=== PATIENT | female | born 1955 | race Caucasian/White ===

== ENCOUNTER 2020-04-09 22:57 | Inpatient (IN) ==
--- NOTE | 2020-04-09 23:22 | DR.GENAD ---
HPI Time Seen Time Seen by Provider: 04/09/20 23:22 PCP Primary Care Physician: ZEHRA LEIVA Comment HPI Comment: HISTORY BELOW. Complaint/Symptoms Chief Complaint Doctors Comments: ABDOMINAL PAIN, CHEST PAIN AND GENERALIZED WEAKNESS THAT STARTED THIS WEEK. COVID 19 POSITIVE AND REPORTED TO PATIENT THIS WEEK. INCREASE FATIGUE. SHE STARTED WITH EAR PAIN AND SINUS DRAINAGE. NOW WITH NAUSEA AND VOMITING. NOT HOLDING DOWN FOOD. HAVING DIFFUSED ABDOMINAL PAIN. SHE IS COUGHING, AND SPITTING. DENIES FEVER. ON ZITHROMAX AND HYDROXY CHLOROQUIN. ALSO ON MEDROL DOSE PK. GETTING WORSE. HAVING DIARRHEA WELL. PATIENT BELIEVE HER MEDICATIONS ARE CONTRIBUTING TO HER ILLNESS. SHE IS WEAK AND DRAINED OF HER ENERGY. RUNNING FEVER. NO DYSURIA. Chief Complaint:: PT C/O N/V SINCE BEING DX WITH COVID LAST WEEK PT STATES" I CAN'T TOLERATE MEDICINES I M SO SICK" COVID-19 Coronavirus risk:travel/contact w/high risk person: Yes Source History Provided: Patient and Family Member Mode of Arrival Mode of Arrival: Wheelchair Timing Onset of Chief Complaint: 04/02/20 Came on: Suddenly Duration Duration: Constant Duration: Days Severity Severity: Moderate Modifying Factors Worsens:: EXERTION Improves:: REST. Associated Signs and Symptoms Associated Signs and Symptoms: WEAKNESS, FATIGUE. PMH PMH Past Medical History: Yes Past Medical History: GERD, Hypertension and Hypothyroidism Past Surgical History: No Surgical History: Unknown Family History History of Family Medical Conditions: No Social History Does any household member use tobacco: No Alcohol Use: None Do you use any recreational Drugs:: No Lives With: Family Lives Where: Home Infectious screening In the last 2 months have you had wt loss of >10#?: NO Have you had fever, night sweats or hemotysis?: No Have you traveled outside the country in the last 6 months?: No Isolation: Droplet ROS Review of Systems Constitutional: See HPI, Fever, Malaise, Weakness and Fatigue Eyes: No Symptoms Reported and See HPI; negative Blurred Vision and Diplopia ENTM: See HPI, Ear Pain, Nose Discharge, Nose Congestion and Throat Pain Respiratoy: See HPI and Moist Cough; negative Short of Breath and Wheezing Cardiovascular: See HPI and Chest Pain; negative Edema and Palpitations Gastrointestinal/Abdominal: No Symptoms Reported and See HPI Genitourinary: No Symptoms Reported and See HPI Neurological: See HPI, Headache, Weakness and Dizziness Musculoskeletal: See HPI, Back Pain and Muscle Pain Integumentary: No Symptoms Reported and See HPI; negative Change in Color, Rash and Juandice Hematologic/Lymphatic: No Symptoms Reported and See HPI; negative Easy Bruising and Swollen Glands Endocrine: See HPI and Decreased Appetite; negative Increased Thirst and Increased Urine Psychiatric: No Symptoms Reported and See HPI All Other Systems: Reviewed and Negative PE Vital Signs Vitals: Temperature 98.0 F Pulse Rate [Right Brachial] 74 Pulse Rate 77 Respiratory Rate 12 Blood Pressure [Right Arm] 130/58 Blood Pressure 123/58 O2 Sat by Pulse Oximetry 98 General Limitations: No Limitations General Appearance: Alert and In No Apparent Distress Head Head Exam: Normal Inspection and Atraumatic Eyes Eye exam: Normal Appearance and PERRL; negative Scleral Icterus and Conjunctival Injection ENT ENT Exam: Normal External Ear Exam; negative Normal Oropharynx and TM's Normal Bilaterally External Ear Exam: Normal External Inspection; negative Mastoid Tenderness TM/Canal Exam: Bilateral: Bulging Nose Exam: Normal Nose Exam; negative Sinus Tenderness Mouth Exam: Normal Inspection; negative Lip Swelling and Tongue Swelling Throat Exam: Tonsillar Erythema; negative Tonsillomegaly and Tonsillar Exudate Neck Neck Exam: Normal Inspection and Trachea Midline; negative Tenderness and Lymphadenopathy Chest Chest Inspection: Normal Inspection and Symmetric Chest Wall Rise; negative Tenderness Respiratory Respiratory Exam: Normal Lung Sounds Bilat; negative Accessory Muscle Use, Chest Wall Tenderness and Respiratory Distress Respiratory Exam: Bilateral: Clear to Auscultation Cardiovascular Cardiovascular Exam: Regular Rate, Normal Rhythm and Normal Heart Sounds; negative Systolic Murmur and Diastolic Murmur Abdominal Exam Abdominal Exam: Normal Inspection, Normal Bowel Sounds, Soft and Tenderness Abdominal Tenderness: RUQ, LUQ, Epigastrium and Moderate Extremities Extremities Exam: Normal Inspection and Normal Capillary Refill; negative Tenderness, Edema and Calf Tenderness Back Back Exam: Normal Inspection, Full ROM and Tenderness; negative (R) CVA Tenderness and (L) CVA Tenderness Neurologic Neurological Exam: Alert, Oriented X3 and CN II-XII Intact; negative Motor Sensory Deficit Psychiatric Psychiatric Exam: Normal Affect and Normal Mood Skin Skin Exam: Dry MDM Additional Information Additional Information Obtained From: Family Differential Diagnosis Differential Diagnosis: ABDOMINAL PAIN, GENERALIZED WEAKNESS, FEVER, SINUSITIS, UTI, GASTROENTERITI COURSE Treatment Treatment: SEE ORDERS. NS 1L IV BOLUS. ZOFRAN AND DEMOROL IV IN ER. PEPCIG 20MG IVPB. Reevaluation 1st: Worsened and Improved (PAINN IMPROVING.) Education/Counseling Education/Counseling: Patient and Family Educated On: Diagnosis and Needs for Follow Up ROR Labs Reviewed Laboratory Results Reviewed?: Yes Result Diagrams: 04/13/20 05:00 04/13/20 05:00 Laboratory: 04/10/20 12:30 Blood Blood Culture - Final 04/10/20 12:15 Blood Blood Culture - Final WBC 4.7 X10^3/uL (3.6-10.0) 04/11/20 04:40 RBC 4.73 X10^6/uL (3.5-5.4) 04/11/20 04:40 Hgb 12.9 g/dL (12.0-16.0) 04/11/20 04:40 Hct 37.3 % (36.0-47.0) 04/11/20 04:40 MCV 78.8 fL (80.0-100.0) L 04/11/20 04:40 MCH 27.3 pg (27.0-34.0) 04/11/20 04:40 MCHC 34.6 g/dL (33.0-35.0) 04/11/20 04:40 RDW 14.2 % (11.6-16.5) 04/11/20 04:40 Plt Count 171 X10^3/uL (150.0-450.0) 04/11/20 04:40 MPV 8.5 fL (7.4-11.0) 04/11/20 04:40 Neut % (Auto) 88.8 % (42.0-75.0) H 04/11/20 04:40 Lymph % (Auto) 9.5 % (21.0-51.0) L 04/11/20 04:40 [place] % (Auto) 1.6 % (0.0-13.0) 04/11/20 04:40 Eos % (Auto) 0.0 % (0.9-2.9) L 04/11/20 04:40 Baso % (Auto) 0.1 % (0.2-1.0) L 04/11/20 04:40 Neut # (Auto) 4.2 x10^3/uL (2.2-4.8) 04/11/20 04:40 Lymph # (Auto) 0.5 X10^3/uL (1.3-2.9) L 04/11/20 04:40 [place] # (Auto) 0.1 x10^3/uL (0.3-0.8) L 04/11/20 04:40 Eos # (Auto) 0.0 x10^3/uL (0.0-0.2) 04/11/20 04:40 Baso # (Auto) 0.0 X10^3/uL (0.0-0.1) 04/11/20 04:40 Absolute Nucleated RBC 0.0 /100WBC 04/11/20 04:40 Sample Site Lr 04/11/20 04:39 ABG pH 7.430 (7.35-7.45) 04/11/20 04:39 ABG pCO2 32.0 mmHg (35.0-45.0) L 04/11/20 04:39 ABG pO2 77.0 mmHg (80.0-100.0) L 04/11/20 04:39 ABG HCO3 21.2 mmol/L (22-26) L 04/11/20 04:39 ABG O2 Saturation 96.0 % (90-100) 04/11/20 04:39 ABG Base Excess -2.3 mmol/L (-2.0-2.0) L 04/11/20 04:39 [place] Test Pos 04/11/20 04:39 A-a Gradient 33.0 mmHg 04/11/20 04:39 FiO2 21.0 04/11/20 04:39 Blood Gas Comments Ole well ae 04/11/20 04:39 Sodium 136 mmol/L (136-145) 04/11/20 04:40 Corrected Sodium 137 mmol/L (136-145) 04/11/20 04:40 Potassium 3.5 mmol/L (3.5-5.1) 04/11/20 08:37 Chloride 101 mmol/L (98-107) 04/11/20 04:40 Carbon Dioxide 20.9 mmol/L (21-32) L 04/11/20 04:40 BUN 10 mg/dL (7-18) 04/11/20 04:40 Creatinine 0.79 mg/dL (0.55-1.02) 04/11/20 04:40 Est GFR (MDRD) Af Amer > 60 (>60) 04/11/20 04:40 Est GFR (MDRD) Non-Af > 60 (>60) 04/11/20 04:40 Glucose 152 mg/dL (65-99) H 04/11/20 04:40 Lactic Acid 1.0 mmol/L (0.4-2.0) 04/09/20 23:46 Calcium 8.2 mg/dL (8.5-10.1) L 04/11/20 04:40 Corrected Calcium 9.1 mg/dL (8.5-10.1) 04/11/20 04:40 Ferritin 910 ng/mL (8-252) H 04/11/20 04:40 Total Bilirubin 0.70 mg/dL (0.2-1.0) 04/11/20 04:40 AST 24 Units/L (15-37) 04/11/20 04:40 ALT 39 Units/L (12-78) 04/11/20 04:40 Alkaline Phosphatase 71 Units/L (46-116) 04/11/20 04:40 Lactate Dehydrogenase 165 Units/L (81-234) 04/09/20 23:46 Creatine Kinase 30 Units/L (26-192) 04/09/20 23:46 CK-MB (CK-2) < 1.0 ng/mL (0-4.0) 04/09/20 23:46 CK/CKMB % Calc 3.3 % (<4) 04/09/20 23:46 Troponin I < 0.02 ng/mL (0-1.5) 04/09/20 23:46 C-Reactive Protein 93.30 mg/L (0-3.0) H 04/11/20 04:40 B-Natriuretic Peptide 38.3 pg/mL (0-79) 04/10/20 12:15 Total Protein 7.3 g/dL (6.4-8.2) 04/11/20 04:40 Albumin 2.9 g/dL (3.4-5.0) L 04/11/20 04:40 Globulin 4.4 g/dL (2.5-4.5) 04/11/20 04:40 Albumin/Globulin Ratio 0.7 Ratio (1.1-2.1) L 04/11/20 04:40 Amylase 54 Units/L (25-115) 04/09/20 23:46 Lipase 129 Units/L (73-393) 04/09/20 23:46 Specimen Type Clean catch urine 04/10/20 04:30 Urine Color Minerva (YELLOW) 04/10/20 04:30 Urine Appearance Clear (CLEAR) 04/10/20 04:30 Urine pH 6.0 (5.0 - 8.0) 04/10/20 04:30 Ur Specific [place] 1.015 (1.000-1.030) 04/10/20 04:30 Urine Protein 1+ (NEGATIVE) 04/10/20 04:30 Urine Glucose (UA) Negative (NEGATIVE) 04/10/20 04:30 Urine Ketones 3+ (NEGATIVE) 04/10/20 04:30 Urine Occult Blood 2+ (NEGATIVE) 04/10/20 04:30 Urine Nitrite Negative (NEGATIVE) 04/10/20 04:30 Urine Bilirubin Negative (NEGATIVE) 04/10/20 04:30 Urine Urobilinogen 1+ (NORMAL) 04/10/20 04:30 Ur Leukocyte Esterase Negative (NEGATIVE) 04/10/20 04:30 Urine RBC 0-2 /HPF (0-3) 04/10/20 04:30 Urine WBC 0-2 /HPF (0-5) 04/10/20 04:30 Ur Squamous Epith Cells Numerous /HPF (NEGATIVE) 04/10/20 04:30 Urine Bacteria Trace /HPF (NEGATIVE) 04/10/20 04:30 Ur Culture Indicated? No/not indicated 04/10/20 04:30 Blood Type O POSITIVE 04/10/20 11:59 XRAY XRAY Interpreted by: Radiologist (REPORT NOTED AND DISCUSSED WITH PATIENT.) and Self (AGREE WITH REPORT.) EKG Rate: 78 [place]: Normal Rhythm: NSR Block: None Hypertrophy: None ST: Ant, Lat and Nonsp Opioid Opioid Risk Tool Age (Rory box if 16-45): No History of Preadolescent Sexual Abuse: No Total: 0 Total Score Risk Category: Low Risk Copyright: Sean NAIK predicting aberrant behaviors Diagnosis Discharge Problem: Gastroenteritis, Hypokalemia, Acute dehydration, COVID-19 Abdominal pain Qualifiers: Abdominal location: upper abdomen, unspecified Qualified Code(s): R10.10 - Upper abdominal pain, unspecified Sinusitis Qualifiers: Sinusitis location: unspecified location Chronicity: acute Recurrence: not specified as recurrent Qualified Code(s): J01.90 - Acute sinusitis, unspecified Instructions Instructions: Shortness of Breath, Adult, Idvv-kx-Ospm Hypokalemia Viral Respiratory Infection, Tsrd-Cv-Gnkv Hand Washing, Nsqc-yd-Pjqb Upper Respiratory Infection, Adult, Taju-sy-Cnen Abdominal Pain, Adult, Zegm-jl-Dzzz Droplet Precautions, Jnpe-cy-Cmtd Contact Precautions, Hcvb-ow-Odfg Hypertension, Dfvw-mf-Qrxi Forms: Excuse From Work Precautions for COVID19 Patient Portal Social Distancing
[2020-04-09 23:59] LABS: BASOPHILS # (AUTO) 0.1 X10^3/uL (0.0-0.1); BASOPHILS % (AUTO) 0.6 % (0.2-1.0); HEMATOCRIT 42.6 % (36.0-47.0); HEMOGLOBIN 14.5 g/dL (12.0-16.0); LYMPHOCYTES # (AUTO) 1.7 X10^3/uL (1.3-2.9); LYMPHOCYTES % (AUTO) 20.2 % (21.0-51.0); MEAN CORPUSCULAR HEMOGLOBIN 26.8 pg (27.0-34.0); MEAN CORPUSCULAR HGB CONC 34.1 g/dL (33.0-35.0); MEAN CORPUSCULAR VOLUME 78.4 fL (80.0-100.0); MEAN PLATELET VOLUME 8.4 fL (7.4-11.0); MONOCYTES # (AUTO) 0.9 x10^3/uL (0.3-0.8); MONOCYTES % (AUTO) 10.2 % (0.0-13.0); NEUTROPHILS # (AUTO) 5.8 x10^3/uL (2.2-4.8); PLATELET COUNT 167 X10^3/uL (150.0-450.0); RED BLOOD COUNT 5.43 X10^6/uL (3.5-5.4); RED CELL DISTRIBUTION WIDTH 14.5 % (11.6-16.5); WHITE BLOOD COUNT 8.5 X10^3/uL (3.6-10.0)
[2020-04-10] MEDS ORDERED: DEMEROL INJ IVP ONE ×2 (00:05→06:52)
[2020-04-10] MEDS ORDERED: PEPCID 20 MG IV PREMIX* 20 MG/50 ML BAG IV ONE ×2 (00:05→00:20)
[2020-04-10 00:16] LABS: ALANINE AMINOTRANSFERASE 40 Units/L (12-78); ALBUMIN 3.2 g/dL (3.4-5.0); ALKALINE PHOSPHATASE 76 Units/L (46-116); AMYLASE 54 Units/L (25-115); ASPARTATE AMINO TRANSFERASE 29 Units/L (15-37); BLOOD UREA NITROGEN 8 mg/dL (7-18); CARBON DIOXIDE 24.4 mmol/L (21-32); CHLORIDE 98 mmol/L (98-107); CKMB % 3.3 % (<4); CREATINE KINASE 30 Units/L (26-192); CREATINE KINASE MB < 1.0 ng/mL (0-4.0); CREATININE 0.89 mg/dL (0.55-1.02); LACTATE DEHYDROGENASE 165 Units/L (81-234); LIPASE 129 Units/L (73-393); SODIUM 135 mmol/L (136-145); TOTAL PROTEIN 7.5 g/dL (6.4-8.2); TROPONIN I < 0.02 ng/mL (0-1.5); eGFR NON BLACK RACES > 60 (>60)
[2020-04-10] MEDS ORDERED: DEMEROL INJ ONE ×3 (00:20→07:30)
[2020-04-10] MEDS ORDERED: ZOFRAN INJ 4 MG VIAL ONE ×2 (00:20→06:55)
[2020-04-10 00:24] LABS: CALCIUM 8.1 mg/dL (8.5-10.1); COR CA(FOR HYPOALB) 8.7 mg/dL (8.5-10.1)
[2020-04-10] MEDS: ZOFRAN INJ 4 MG VIAL IVP PRN ×2 (00:42→18:10)
--- NOTE | 2020-04-10 01:36 | CT ---
HISTORYPT C/O N/V SINCE BEING DX WITH COVID LAST WEEK PT STATES" I CAN'T TOLERATE MEDICINES I M SO SICK"STUDYABDOMEN/PELVIS W/O CONCOMPARISONNoneTECHNIQUEMultiple axial images of the abdomen and pelvis were obtained from the lung bases to the pubic symphysis without the administration of IV contrast. Dose reduction techniques including Automated Exposure Control (AEC) and adjustment of mA and kV were utilized.FINDINGSThe visualized portions of the lung bases are unremarkable . The liver, spleen, pancreas, kidneys, and adrenal glands are unremarkable in their CT appearance. Post cholecystectomy changes.. No significant mesenteric lymphadenopathy or stranding can be observed. No free fluid or free air is seen within the abdomen. The the appendix is not visualized. No bowel wall thickening or bowel dilatation is present. The colon is normal. There are few scattered diverticula arising from the descending and sigmoid colon without evidence of acute diverticulitis.. The urinary bladder is grossly unremarkable. The uterus is present. The bony structures are grossly intact.IMPRESSIONColonic diverticulosis without evidence of diverticulitis.Post cholecystectomy changes.No acute abdominal or pelvic pathology.Electronically signed by: Eloy Candelaria (Apr 10, 2020 01:35:08)
[2020-04-10] MEDS ORDERED: NS 1000 ML 1,000 ML IV ONE (03:12)
[2020-04-10] MEDS ORDERED: NS 1000 ML 1,000 ML ONE (03:13)
[2020-04-10 04:53] LABS: BILIRUBIN,URINE NEGATIVE (NEGATIVE); BLOOD/HEMOGLOBIN,URINE 2+ (NEGATIVE); GLUCOSE, URINE NEGATIVE (NEGATIVE); KETONES,URINE 3+ (NEGATIVE); LEUKOCYTE ESTERASE ,URINE NEGATIVE (NEGATIVE); NITRITES,URINE NEGATIVE (NEGATIVE); PROTEIN,URINE 1+ (NEGATIVE); UROBILINOGEN,URINE 1+ (NORMAL)
[2020-04-10] MEDS ORDERED: POTASSIUM CHLORIDE LIQ 20 MEQ UDC PO ONE (04:56)
[2020-04-10 05:00] LABS: APPEARANCE,URINE CLEAR (CLEAR); COLOR,URINE AMBER (YELLOW)
[2020-04-10 05:01] LABS: BACTERIA,URINE TRACE /HPF (NEGATIVE); RBC,URINE 0-2 /HPF (0-3); SQUAMOUS EPITHELIAL CELL,UR NUMEROUS /HPF (NEGATIVE)
[2020-04-10] MEDS ORDERED: KLOR-CON PO ONE (06:11)
[2020-04-10] MEDS ORDERED: KLOR-CON ONE (06:13)
[2020-04-10] MEDS ORDERED: ZOFRAN INJ 4 MG VIAL IVP ONE ×2 (06:52→16:17)
--- NOTE | 2020-04-10 07:36 | CT ---
HISTORYHEADACHE, COVID +STUDYBRAIN W/O CONCOMPARISONNoneTECHNIQUEMultiple axial images of the head were performed from the skullbase to the vertex using standard departmental protocol. Sagittal and coronal reformatted images were performed. Dose reduction techniques including Automated Exposure Control (AEC) and adjustment of mA and kV were utilized.FINDINGSThe lateral ventricles and basilar cisterns are patent. No parenchymal mass or hematoma. No extra-axial collection. Dc-white differentiation appears acutely preserved. Mild small vessel ischemic change with subcortical low-attenuation change in the supratentorial white matter. The globes are intact. There is mild mucosal thickening in the ethmoid air cells. The mastoid air cells appear clear. The calvarium is intact.IMPRESSIONNo acute intracranial abnormality. Mild chronic small vessel disease. Mild paranasal sinus disease.Electronically signed by: Adrian Fleming (Apr 10, 2020 07:35:45)
--- NOTE | 2020-04-10 07:38 | RAD ---
HISTORYCOVID +SOBSTUDYCHEST, 1 VIEWCOMPARISONNoneTECHNIQUEAP view of the chestFINDINGSCardiac and mediastinal contours are within normal limits. Mild scattered patchy lung opacities are present. No pleural effusion or pneumothorax.IMPRESSIONScattered patchy lung opacities consistent with covid 19.Electronically signed by: Adrian Fleming (Apr 10, 2020 07:37:53)
[2020-04-10] MEDS ORDERED: ZOSYN VIAL 3.375 GRAMS 3.375 G in NS 100 ML IV + SPIKE MINIBAG* 100 ML IV ONE (07:53)
[2020-04-10 08:55] LABS: ABG BASE EXCESS 1.3 mmol/L (-2.0-2.0); ABG HCO3 24.9 mmol/L (22-26)
[2020-04-10] MEDS ORDERED: NS 100 ML IV 100 ML IV ONE (08:56)
[2020-04-10] MEDS ORDERED: ZOSYN VIAL 3.375 GRAMS IV ONE (08:56)
[2020-04-10] MEDS ORDERED: REMDESIVIR (INVESTIGATIONAL DRUG GS-5734) 200 MG in NS 250 ML IV 250 ML IV SCH (12:00)
[2020-04-10] MEDS ORDERED: NS 250 ML IV 250 ML IV ONE (12:15)
[2020-04-10 12:45] LABS: BASOPHILS % (AUTO) 0.3 % (0.2-1.0); EOSINOPHILS % (AUTO) 0.1 % (0.9-2.9); HEMATOCRIT 39.7 % (36.0-47.0); HEMOGLOBIN 13.6 g/dL (12.0-16.0); LYMPHOCYTES # (AUTO) 1.6 X10^3/uL (1.3-2.9); LYMPHOCYTES % (AUTO) 24.1 % (21.0-51.0); MEAN CORPUSCULAR HEMOGLOBIN 27.1 pg (27.0-34.0); MEAN CORPUSCULAR HGB CONC 34.3 g/dL (33.0-35.0); MEAN CORPUSCULAR VOLUME 78.9 fL (80.0-100.0); MEAN PLATELET VOLUME 8.2 fL (7.4-11.0); MONOCYTES # (AUTO) 0.7 x10^3/uL (0.3-0.8); MONOCYTES % (AUTO) 10.6 % (0.0-13.0); NEUTROPHILS # (AUTO) 4.2 x10^3/uL (2.2-4.8); NEUTROPHILS % (AUTO) 64.9 % (42.0-75.0); PLATELET COUNT 149 X10^3/uL (150.0-450.0); RED BLOOD COUNT 5.03 X10^6/uL (3.5-5.4); RED CELL DISTRIBUTION WIDTH 14.3 % (11.6-16.5); WHITE BLOOD COUNT 6.5 X10^3/uL (3.6-10.0)
[2020-04-10 12:50] LABS: BLOOD UREA NITROGEN 9 mg/dL (7-18); CALCIUM 8.2 mg/dL (8.5-10.1); CARBON DIOXIDE 25.5 mmol/L (21-32); CHLORIDE 101 mmol/L (98-107); CREATININE 0.72 mg/dL (0.55-1.02); SODIUM 137 mmol/L (136-145); eGFR NON BLACK RACES > 60 (>60)
[2020-04-10] MEDS: DUONEB 0.5 MG/3 MG (3 mL) NEB SCH ×3 (13:00→20:45)
[2020-04-10] MEDS: PULMICORT NEB TX 0.5 MG NEB SCH ×2 (13:00→20:45)
[2020-04-10] MEDS: MUCOMYST 20% 200 MG/ML NEB SCH ×2 (13:00→20:45)
[2020-04-10] MEDS: ROBITUSSIN DM PO SCH ×3 (13:24→21:53)
[2020-04-10] MEDS: VSL#3 PO SCH (13:25)
[2020-04-10] MEDS ORDERED: LEVAQUIN PREMIX IV 500 MG 500 MG/100 ML BAG IV ONE (13:26)
[2020-04-10] MEDS ORDERED: MUCOMYST 20% 200 MG/ML ONE (13:43)
[2020-04-10] MEDS ORDERED: DUONEB 0.5 MG/3 MG (3 mL) NEB ONE (13:43)
[2020-04-10 14:29] LABS: ALANINE AMINOTRANSFERASE 41 Units/L (12-78); ALBUMIN 2.9 g/dL (3.4-5.0); ALKALINE PHOSPHATASE 72 Units/L (46-116); ASPARTATE AMINO TRANSFERASE 28 Units/L (15-37); COR CA(FOR HYPOALB) 9.1 mg/dL (8.5-10.1)
[2020-04-10] MEDS ORDERED: NS 1/2 1000 ML IV 1,000 ML IV ONE (14:37)
[2020-04-10] MEDS: LEVAQUIN PREMIX IV 500 MG 500 MG/100 ML BAG IV SCH (14:43)
[2020-04-10] MEDS: NS 1/2 1000 ML IV 1,000 ML IV SCH (14:43)
[2020-04-10] MEDS ORDERED: XOPENEX 1.25 MG/3 ML NEBULE NEB ONE (16:15)
[2020-04-10] MEDS ORDERED: BENADRYL INJ 50 MG VIAL ONE (18:15)
[2020-04-10 18:37] VITALS: BMI 34.3
[2020-04-10] MEDS ORDERED: SOLU-Medrol 40 MG VIAL ONE (20:37)
[2020-04-10] MEDS: SOLU-Medrol 40 MG VIAL IVP SCH (21:36)
[2020-04-10] MEDS ORDERED: TYLENOL 325 MG TAB PO PRN (22:14)
[2020-04-11 04:44] LABS: ABG ALLEN TEST POS; ABG BASE EXCESS -2.3 mmol/L (-2.0-2.0); ABG HCO3 21.2 mmol/L (22-26)
[2020-04-11 05:05] LABS: BASOPHILS % (AUTO) 0.1 % (0.2-1.0); HEMATOCRIT 37.3 % (36.0-47.0); HEMOGLOBIN 12.9 g/dL (12.0-16.0); LYMPHOCYTES # (AUTO) 0.5 X10^3/uL (1.3-2.9); LYMPHOCYTES % (AUTO) 9.5 % (21.0-51.0); MEAN CORPUSCULAR HEMOGLOBIN 27.3 pg (27.0-34.0); MEAN CORPUSCULAR HGB CONC 34.6 g/dL (33.0-35.0); MEAN CORPUSCULAR VOLUME 78.8 fL (80.0-100.0); MEAN PLATELET VOLUME 8.5 fL (7.4-11.0); MONOCYTES # (AUTO) 0.1 x10^3/uL (0.3-0.8); MONOCYTES % (AUTO) 1.6 % (0.0-13.0); NEUTROPHILS # (AUTO) 4.2 x10^3/uL (2.2-4.8); NEUTROPHILS % (AUTO) 88.8 % (42.0-75.0); PLATELET COUNT 171 X10^3/uL (150.0-450.0); RED BLOOD COUNT 4.73 X10^6/uL (3.5-5.4); RED CELL DISTRIBUTION WIDTH 14.2 % (11.6-16.5); WHITE BLOOD COUNT 4.7 X10^3/uL (3.6-10.0)
[2020-04-11 05:13] LABS: ALANINE AMINOTRANSFERASE 39 Units/L (12-78); ALBUMIN 2.9 g/dL (3.4-5.0); ALKALINE PHOSPHATASE 71 Units/L (46-116); ASPARTATE AMINO TRANSFERASE 24 Units/L (15-37); BLOOD UREA NITROGEN 10 mg/dL (7-18); CALCIUM 8.2 mg/dL (8.5-10.1); CARBON DIOXIDE 20.9 mmol/L (21-32); CHLORIDE 101 mmol/L (98-107); COR CA(FOR HYPOALB) 9.1 mg/dL (8.5-10.1); COR NA(FOR HYPERGLY) 137 mmol/L (136-145); CREATININE 0.79 mg/dL (0.55-1.02); SODIUM 136 mmol/L (136-145); TOTAL PROTEIN 7.3 g/dL (6.4-8.2); eGFR NON BLACK RACES > 60 (>60)
[2020-04-11] MEDS ORDERED: NS 1/2 1000 ML IV 1,000 ML IV ONE ×2 (05:25→13:56)
[2020-04-11] MEDS: NS 1/2 1000 ML IV 1,000 ML IV SCH ×2 (05:54→17:48)
[2020-04-11] MEDS: SOLU-Medrol 40 MG VIAL IVP SCH ×3 (05:54→21:53)
[2020-04-11] MEDS ORDERED: MICRO K EXTEN CAP 10 MEQ PO PRN (06:04)
[2020-04-11] MEDS ORDERED: POTASSIUM CHL 60 MEQ/NS 0.45% 500 ML IV PRN (06:04)
[2020-04-11] MEDS ORDERED: KLOR-CON PO PRN (06:04)
[2020-04-11] MEDS ORDERED: POTASSIUM CHLORIDE LIQ 20 MEQ UDC PO PRN (06:04)
[2020-04-11] MEDS ORDERED: POTASSIUM CHL 40 MEQ/NS 0.45% 500 ML IV PRN (06:04)
--- NOTE | 2020-04-11 06:04 | RAD ---
HISTORYShortness of breathSTUDYChest AP [id number]/25/2020FINDINGSThe heart is within normal limits in size. The jarod are normal. The lungs are well inflated and free of alveolar infiltrates. Interstitial lung changes are present better demonstrated than on the prior examination. There is a focus of subsegmental atelectasis in the left costophrenic angle and 1 in the right upper lobe. No pleural effusions are identified. Bony thorax is unremarkable.IMPRESSIONInterstitial lung changes somewhat better demonstrated than on the prior examinationNo definite alveolar infiltratesFoci of subsegmental atelectasis peripherally in the right upper lobe and in the left costophrenic angleElectronically signed by: TOMASZ ZAZUETA (Apr 11, 2020 06:03:20)
[2020-04-11] MEDS: K-DUR TAB 20 MEQ PO PRN ×2 (06:45→15:40)
[2020-04-11] MEDS: LEVAQUIN PREMIX IV 500 MG 500 MG/100 ML BAG IV SCH (08:45)
[2020-04-11] MEDS: LOVENOX INJ 30 MG SYR SC SCH ×2 (08:45→21:52)
[2020-04-11] MEDS: REMDESIVIR (INVESTIGATIONAL DRUG GS-5734) 100 MG in NS 250 ML IV 250 ML IV SCH (08:46)
[2020-04-11] MEDS: ROBITUSSIN DM PO SCH ×5 (08:47→21:54)
[2020-04-11] MEDS: VSL#3 PO SCH (08:47)
[2020-04-11] MEDS: PULMICORT NEB TX 0.5 MG NEB SCH ×2 (08:58→21:00)
[2020-04-11] MEDS: DUONEB 0.5 MG/3 MG (3 mL) NEB SCH ×4 (08:58→21:00)
[2020-04-11] MEDS: MUCOMYST 20% 200 MG/ML NEB SCH ×2 (08:58→21:00)
[2020-04-11] MEDS ORDERED: FIORICET TAB PO PRN (10:11)
--- NOTE | 2020-04-11 11:31 | DR.H&P ---
H&P - History & Physical for Day of: H&P Date: 04/10/20 - Chief Complaint Chief Complaint: ABDOMINAL PAIN, CHEST PAIN, SHORTNESS OF BREATH, COUGH, AND GENERALIZED WEAKNESS. COVID + - History of Present Illness History of Present Illness: IS A 64 YEAR OLD PATIENT OF OURS. SHE REPORTED TO THE ER WITH COMPLAINTS OF ABDOMINAL PAIN, CHEST PAIN, SHORTNESS OF BREATH, COUGH, AND GENERALIZED WEAKNESS. SHE REPORTS TESTING POSITIVE FOR COVID- 19 SEVERAL DAYS PRIOR. SHE ALSO REPORTS INCREASED FATIGUE, DIARRHEA, AND NAUSEA AND VOMITING, AND SINUS DRAINAGE. SYMPTOMS STARTED ABOUT ONE WEEK PRIOR. SHE HAS BEEN TAKING ZITHROMAX, A MEDROL DOSEPACK, AND HYDROXYCHLOROQUINE WITHOUT IMPROVEMENT IN SYMPTOMS. HER PMH INCLUDES GERD, HTN, AND HYPOTHYROIDISM. ON ARRIVAL TO THE HOSPITAL, VITALS WERE 100.1-70-20-100%-147/72. LABS WERE OBTAINED. ABNORMAL LAB VALUES INCLUDE THE FOLLOWING: RBC 5.43, FERRITIN 787, SODIUM 135, POTASSIUM 3.2, GLUCOSE 102, CALCIUM 8.1, TOTAL BILI 1.10, CRP 95.70, ALBUMIN 3.2. URINALYSIS UNREMARKABLE. AN ABG WAS OBTAINED AND REVELAED: PH 7.460, PC02 35, P02 75, HC03 24.9, 02 SAT 96, FI02 21. BLOOD CULTURES WERE SET UP. AN ABDOMEN/PELVIS CT WAS OBTAINED AND REVEALED: Colonic diverticulosis without evidence of diverticulitis. Post cholecystectomy changes. No acute abdominal or pelvic pathology. BRAIN CT WAS OBTAINED DUE TO SEVERE HEADACHE AND REVEALED: No acute intracranial abnormality. Mild chronic small vessel disease. Mild paranasal sinus disease. CHEST XRAY REVEALED: Scattered patchy lung opacities consistent with covid 19. SHE WAS GIVEN A NORMAL SALINE BOLUS, DEMEROL 12.5MG IV X 2 DOSES, KLOR CON 20MEQ PO X 1, ZOFRAN 4MG IV X 2, ZOSYN 3.375MG IV X 1, AND REMDESIVIR 200MG IV X 1. SHE WAS ADMITTED FOR [facility] EVALUATION AND TREATMENT OF PNEUMONIA DUE TO COVID-19. SHE WAS STARTED ON 1/2NS AT 75 ML/HR, LEVAQUIN 500MG IV DAILY, REMDESIVIR 100MG IV DAILY, SOLU-MEDROL 80MG IV Q8H, DUONEBS QID, PULMICORT NEBS BID, MUCOMYST IN NEB [place] BID, PEPCID IV, PROTONIX IV, GI COCKTAIL, FIORICET 2 TABS PO Q8H PRN, ZOFRAN 4MG IV Q8H PRN, THE POTASSIUM AND MAGNESIUM PROTOCOLS, AN HER HOME MEDICATIONS WERE RESUMED. OTHERWISE, WE PLAN TO FOLLOW UP WITH AM LABS AND CONTINUE TO MONITOR. TIME SPENT WITH PATIENT ON EXAMINATION, REVIEWING CHART, COUNSELING, AND PLAN OF CARE AT LEAST 70 MINUTES. - Past Medical History Past Medical History: Hypertension, Hypothyroidism, GERD - Past Surgical History Surgical History: Cholecystectomy - Family History Family Medical History: Cancer - Social History Does patient currently use any type of tobacco product: No Have you used tobacco products in the last 12 months: No Type of Tobacco Use: None Does any household member use tobacco: No Alcohol Use: None Drug Use: None - Medications Home Medications: codeine Allergy (Verified 04/09/20 23:40) Penicillins Allergy (Verified 04/10/20 18:45) promethazine [From Phenergan] Allergy (Verified 04/10/20 18:45) CONTINUE taking the following medications citalopram [Celexa] 20 mg PO DAILY 04/10/20 [History] hydrochlorothiazide 12.5 mg PO DAILY 04/10/20 [History] levothyroxine [Synthroid] 112 mcg PO DAILY 04/10/20 [History] losartan 50 mg PO DAILY 04/10/20 [History] simvastatin 10 mg PO HS 04/10/20 [History] - Review of Systems Constitutional: See HPI, Fever, Weakness Eyes: No Symptoms Reported ENT: See HPI, Nose Discharge Respiratory: See HPI, Cough, Shortness of Breath, SOB with Excertion, Wheezing Cardiovascular: Chest Pain Gastrointestinal: See HPI, Nausea, Vomiting, Abdominal Pain, Diarrhea Genitourinary: No Symptoms Reported Musculoskeletal: No Symptoms Reported Skin: No Symptoms Reported Neurological: Weakness - Physical Exam Vital Signs: Temperature 97.9 F Pulse Rate [Right Brachial] 74 Pulse Rate 61 Respiratory Rate 16 Blood Pressure [Right Arm] 130/58 Blood Pressure 116/56 O2 Sat by Pulse Oximetry 100 Oriented: Normal Eyes: Normal Ear: Normal Nose: Normal Throat: Normal Respiratory: Wheezes Throughout Cardiovascular: Normal : Normal Auscultation: Bowel Sounds: Normal Palpation: Normal Tenderness: Normal Skin: Decreased Turgur Musculoskeletal: Normal Psychiatric: Normal Mood Description: Calm Affect: Normal Speech Pattern: Clear - Assessment/Plan (1) Pneumonia due to COVID-19 virus Status: Acute Plan: 1/2NS AT 75 ML/HR, LEVAQUIN 500MG IV DAILY, REMDESIVIR 100MG IV DAILY, SOLU-MEDROL 80MG IV Q8H, DUONEBS QID, PULMICORT NEBS BID, MUCOMYST IN NEB [place] BID, PEPCID IV, PROTONIX IV, GI COCKTAIL, FIORICET 2 TABS PO Q8H PRN, ZOFRAN 4MG IV Q8H PRN, THE POTASSIUM AND MAGNESIUM PROTOCOLS, AN HER HOME MEDICATIONS WERE RESUMED (2) Acute dehydration Status: Acute (3) Hypokalemia Status: Acute - Allergies Allergies/Adverse Reactions: Allergies Allergy/AdvReac Type Severity Reaction Status Date / Time codeine Allergy Verified 04/09/20 23:40 Penicillins Allergy Verified 04/10/20 18:45 promethazine [From Phenergan] Allergy Verified 04/10/20 18:45
[2020-04-11] MEDS: ZOFRAN INJ 4 MG VIAL IVP PRN (15:07)
[2020-04-11] MEDS: HYDROCHLOROTHIAZIDE 12.5 MG CAP PO SCH ×2 (15:40→18:39)
[2020-04-11] MEDS: CELEXA PO SCH ×2 (15:41→18:37)
[2020-04-11] MEDS: SYNTHROID 112 mcg TAB PO SCH ×2 (15:41→18:40)
[2020-04-11] MEDS: COZAAR PO SCH ×2 (15:41→18:38)
[2020-04-11] MEDS: LEVSIN/MAALOX/LIDOC VISC PO SCH ×4 (15:42→21:34)
[2020-04-11] MEDS: TORADOL 30 MG VIAL IVP SCH ×2 (15:43→21:32)
[2020-04-11] MEDS: PEPCID 20 MG IV PREMIX* 20 MG/50 ML BAG IV SCH ×2 (15:44→21:54)
[2020-04-11] MEDS: PROTONIX INJ 40 MG VIAL IVP SCH ×2 (15:51→21:54)
[2020-04-11] MEDS: K-RIDER 10 MEQ/NS 100 ML 10 MEQ/100 ML BAG IV PRN (18:04)
[2020-04-11] MEDS: ZOCOR TAB 10 MG PO SCH (21:52)
[2020-04-12] MEDS: K-RIDER 10 MEQ/NS 100 ML 10 MEQ/100 ML BAG IV PRN (01:10)
[2020-04-12] MEDS ORDERED: NS 1/2 1000 ML IV 1,000 ML IV ONE (01:43)
[2020-04-12] MEDS: NS 1/2 1000 ML IV 1,000 ML IV SCH ×3 (01:59→22:09)
[2020-04-12] MEDS: TORADOL 30 MG VIAL IVP SCH ×4 (03:32→20:45)
[2020-04-12 03:40] LABS: BASOPHILS % (AUTO) 0 % (0.2-1.0); HEMATOCRIT 35.6 % (36.0-47.0); HEMOGLOBIN 12.2 g/dL (12.0-16.0); LYMPHOCYTES # (AUTO) 0.6 X10^3/uL (1.3-2.9); LYMPHOCYTES % (AUTO) 8.3 % (21.0-51.0); MEAN CORPUSCULAR HEMOGLOBIN 26.9 pg (27.0-34.0); MEAN CORPUSCULAR HGB CONC 34.3 g/dL (33.0-35.0); MEAN CORPUSCULAR VOLUME 78.6 fL (80.0-100.0); MEAN PLATELET VOLUME 8.4 fL (7.4-11.0); MONOCYTES # (AUTO) 0.3 x10^3/uL (0.3-0.8); MONOCYTES % (AUTO) 5.1 % (0.0-13.0); NEUTROPHILS # (AUTO) 5.8 x10^3/uL (2.2-4.8); NEUTROPHILS % (AUTO) 86.6 % (42.0-75.0); PLATELET COUNT 188 X10^3/uL (150.0-450.0); RED BLOOD COUNT 4.53 X10^6/uL (3.5-5.4); RED CELL DISTRIBUTION WIDTH 14.3 % (11.6-16.5); WHITE BLOOD COUNT 6.7 X10^3/uL (3.6-10.0)
[2020-04-12 03:49] LABS: ALANINE AMINOTRANSFERASE 31 Units/L (12-78); ALBUMIN 2.8 g/dL (3.4-5.0); ALKALINE PHOSPHATASE 66 Units/L (46-116); ASPARTATE AMINO TRANSFERASE 17 Units/L (15-37); BLOOD UREA NITROGEN 11 mg/dL (7-18); CALCIUM 8.2 mg/dL (8.5-10.1); CARBON DIOXIDE 21.8 mmol/L (21-32); CHLORIDE 104 mmol/L (98-107); COR CA(FOR HYPOALB) 9.2 mg/dL (8.5-10.1); COR NA(FOR HYPERGLY) 139 mmol/L (136-145); CREATININE 0.81 mg/dL (0.55-1.02); SODIUM 136 mmol/L (136-145); TOTAL PROTEIN 6.7 g/dL (6.4-8.2); eGFR NON BLACK RACES > 60 (>60)
[2020-04-12 05:49] LABS: ABG BASE EXCESS 1.4 mmol/L (-2.0-2.0); ABG HCO3 24.7 mmol/L (22-26)
--- NOTE | 2020-04-12 06:16 | RAD ---
HISTORYSOBSTUDYCHEST, 1 VIEWCOMPARISONOne day priorTECHNIQUEAP view of the chestFINDINGSCardiac silhouette and mediastinal contours appear normal. No significant change in scattered interstitial opacities. No pleural effusion or pneumothorax.IMPRESSIONNo significant change in bilateral interstitial opacities.Electronically signed by: Adrian Fleming (Apr 12, 2020 06:15:17)
[2020-04-12] MEDS: SOLU-Medrol 40 MG VIAL IVP SCH ×3 (06:35→21:00)
[2020-04-12] MEDS: LEVSIN/MAALOX/LIDOC VISC PO SCH ×4 (09:20→20:45)
[2020-04-12] MEDS: LOVENOX INJ 30 MG SYR SC SCH ×2 (09:20→20:45)
[2020-04-12] MEDS: K-DUR TAB 20 MEQ PO PRN (09:21)
[2020-04-12] MEDS: LEVAQUIN PREMIX IV 500 MG 500 MG/100 ML BAG IV SCH (09:21)
[2020-04-12] MEDS: CELEXA PO SCH (09:22)
[2020-04-12] MEDS: PROTONIX INJ 40 MG VIAL IVP SCH ×2 (09:22→20:45)
[2020-04-12] MEDS: ZOFRAN INJ 4 MG VIAL IVP PRN (09:22)
[2020-04-12] MEDS: SYNTHROID 112 mcg TAB PO SCH (09:22)
[2020-04-12] MEDS: COZAAR PO SCH (09:22)
[2020-04-12] MEDS: HYDROCHLOROTHIAZIDE 12.5 MG CAP PO SCH (09:22)
[2020-04-12] MEDS: ROBITUSSIN DM PO SCH ×4 (09:30→22:13)
[2020-04-12] MEDS: REMDESIVIR (INVESTIGATIONAL DRUG GS-5734) 100 MG in NS 250 ML IV 250 ML IV SCH (09:30)
[2020-04-12] MEDS: VSL#3 PO SCH (09:30)
[2020-04-12] MEDS: DUONEB 0.5 MG/3 MG (3 mL) NEB SCH ×4 (10:45→20:55)
[2020-04-12] MEDS: MUCOMYST 20% 200 MG/ML NEB SCH ×2 (10:45→20:55)
[2020-04-12] MEDS: PULMICORT NEB TX 0.5 MG NEB SCH ×2 (10:45→20:55)
--- NOTE | 2020-04-12 12:11 | PCM.PROG ---
Progress Note - Progress Note for Day of Date of Exam: 04/12/20 - Subjective Subjective: IS BEING TREATED FOR PNEUMONIA DUE TO COVID-19. TODAY, SHE IS ALERT AND ORIETNED, LYING IN BED ON MORNING ROUNDS. SHE CONTINUES WITH COMPLAINTS OF COUGH, SHORTNESS OF BREATH, BODY ACHES, NAUSEA/VOMITING, AND WEAKNESS TODAY. SHE DENIES IMPROVEMENT IN SYMPTOMS SINCE ONE DAY PRIOR. SHE REPORTS SEVERE NAUSEA AND OCCATIONAL VOMITING WHEN ATTEMPTING TO EAT, DRINK, OR TAKE ORAL MEDICATIONS. SHE HAS BEEN REQUIRING ZOFRAN WELL TORADOL FOR BODY ACHES. ON EXAMINATION, HEART IS REGULAR IN RATE AND RHYTHM. BILATERAL LUNGS ARE NOTED WITH SCATTERED WHEEZING THROUGHOUT. ABDOMEN IS ROUND, SOFT, AND NON-TENDER WITH NORMAL BOWEL SOUNDS NOTED IN ALL QUADRNATS. HER VITALS THIS MORNING ARE: 98.3-70-18-98%-136/63. LABS WERE OBTAINED. ABNORMAL LAB VALUES INCLUDE THE FOLLOWING: HCT 35.6, GLUCOSE 211, CALCIUM 8.2, FERRITIN 771, CRP 43.10, ALBUMIN 2.8. BLOOD CULTURES ARE PENDING. A CHEST XRAY WAS OBTAINED AND REVEALED: Cardiac silhouette and mediastinal contours appear normal. No significant change in scattered interstitial opacities. No pleural effusion or pneumothorax. SHE IS CURRENTLY RECEIVIN/2NS AT 75 ML/HR, LEVAQUIN 500MG IV DAILY, REMDESIVIR 100MG IV DAILY, SOLU-MEDROL 80MG IV Q8H, DUONEBS QID, PULMICORT NEBS BID, MUCOMYST IN NEB TX BID, PEPCID IV, PROTONIX IV, GI COCKTAIL, FIORICET 2 TABS PO Q8H PRN, ZOFRAN 4MG IV Q8H PRN, THE POTASSIUM AND MAGNESIUM PROTOCOLS, AN HER H OME MEDICATIONS WERE RESUMED. WE WILL CONTINUE WITH CURRENT PLAN OF CARE TODAY. OTHERWISE, WE WILL FOLLOW UP WITH AM LABS, CHEST XRAY, ABG, AND CONTINUE TO MONITOR. - Past Medical Family Social History Past Med/Fam/Surg Hx: No changes since H&P Allergies: Allergies codeine Allergy (Verified 04/09/20 23:40) Penicillins Allergy (Verified 04/10/20 18:45) promethazine [From Phenergan] Allergy (Verified 04/10/20 18:45) - Review of Systems ROS: No change since H&P - Vital Signs and I&O's Vital Signs: Temperature 98.3 F Pulse Rate [Right Brachial] 74 Pulse Rate 70 Respiratory Rate 18 Blood Pressure [Right Arm] 130/58 Blood Pressure 136/63 O2 Sat by Pulse Oximetry 98 Intake and Output: Intake & Output 04/10/20 04/11/20 04/12/20 04/13/20 11:59 11:59 11:59 11:59 Intake Total 1282 / 1282 2630 / 2630 Balance 1282 / 1282 2630 / 2630 - Physical Exam Oriented: Normal Eyes: Normal Ear: Normal Nose: Normal Throat: Normal Respiratory: Generalized, Diminished, Wheezes Cardiovascular: Normal : Normal Auscultation: Bowel Sounds: Normal Palpation: Normal Tenderness: Normal Skin: Decreased Turgur Musculoskeletal: Normal Psychiatric: Normal Mood Description: Calm Affect: Normal Speech Pattern: Clear, Appropriate - Laboratory and Diagnostics Result Diagrams: 04/12/20 03:10 04/12/20 03:10 Labs: 04/10/20 12:30 Blood Blood Culture - Preliminary 04/10/20 12:15 Blood Blood Culture - Preliminary Laboratory WBC 6.7 X10^3/uL (3.6-10.0) 04/12/20 03:10 RBC 4.53 X10^6/uL (3.5-5.4) 04/12/20 03:10 Hgb 12.2 g/dL (12.0-16.0) 04/12/20 03:10 Hct 35.6 % (36.0-47.0) L 04/12/20 03:10 MCV 78.6 fL (80.0-100.0) L 04/12/20 03:10 MCH 26.9 pg (27.0-34.0) L 04/12/20 03:10 MCHC 34.3 g/dL (33.0-35.0) 04/12/20 03:10 RDW 14.3 % (11.6-16.5) 04/12/20 03:10 Plt Count 188 X10^3/uL (150.0-450.0) 04/12/20 03:10 MPV 8.4 fL (7.4-11.0) 04/12/20 03:10 Neut % (Auto) 86.6 % (42.0-75.0) H 04/12/20 03:10 Lymph % (Auto) 8.3 % (21.0-51.0) L 04/12/20 03:10 [place] % (Auto) 5.1 % (0.0-13.0) 04/12/20 03:10 Eos % (Auto) 0.0 % (0.9-2.9) L 04/12/20 03:10 Baso % (Auto) 0 % (0.2-1.0) L 04/12/20 03:10 Neut # (Auto) 5.8 x10^3/uL (2.2-4.8) H 04/12/20 03:10 Lymph # (Auto) 0.6 X10^3/uL (1.3-2.9) L 04/12/20 03:10 [place] # (Auto) 0.3 x10^3/uL (0.3-0.8) 04/12/20 03:10 Eos # (Auto) 0.0 x10^3/uL (0.0-0.2) 04/12/20 03:10 Baso # (Auto) 0.0 X10^3/uL (0.0-0.1) 04/12/20 03:10 Absolute Nucleated RBC 0.1 /100WBC 04/12/20 03:10 Sample Site Lb 04/12/20 05:44 ABG pH 7.470 (7.35-7.45) H 04/12/20 05:44 ABG pCO2 34.0 mmHg (35.0-45.0) L 04/12/20 05:44 ABG pO2 80.0 mmHg (80.0-100.0) 04/12/20 05:44 ABG HCO3 24.7 mmol/L (22-26) 04/12/20 05:44 ABG O2 Saturation 96.0 % (90-100) 04/12/20 05:44 ABG Base Excess 1.4 mmol/L (-2.0-2.0) 04/12/20 05:44 [place] Test Na 04/12/20 05:44 A-a Gradient 27.0 mmHg 04/12/20 05:44 FiO2 21.0 04/12/20 05:44 Blood Gas Comments Ole well gmb 04/12/20 05:44 Sodium 136 mmol/L (136-145) 04/12/20 03:10 Corrected Sodium 139 mmol/L (136-145) 04/12/20 03:10 Potassium 3.5 mmol/L (3.5-5.1) 04/12/20 03:10 Chloride 104 mmol/L (98-107) 04/12/20 03:10 Carbon Dioxide 21.8 mmol/L (21-32) 04/12/20 03:10 BUN 11 mg/dL (7-18) 04/12/20 03:10 Creatinine 0.81 mg/dL (0.55-1.02) 04/12/20 03:10 Est GFR (MDRD) Af Amer > 60 (>60) 04/12/20 03:10 Est GFR (MDRD) Non-Af > 60 (>60) 04/12/20 03:10 Glucose 211 mg/dL (65-99) H 04/12/20 03:10 Lactic Acid 1.0 mmol/L (0.4-2.0) 04/09/20 23:46 Calcium 8.2 mg/dL (8.5-10.1) L 04/12/20 03:10 Corrected Calcium 9.2 mg/dL (8.5-10.1) 04/12/20 03:10 Magnesium 2.3 mg/dL (1.7-2.9) 04/12/20 03:10 Ferritin 771 ng/mL (8-252) H 04/12/20 03:10 Total Bilirubin 0.50 mg/dL (0.2-1.0) 04/12/20 03:10 AST 17 Units/L (15-37) 04/12/20 03:10 ALT 31 Units/L (12-78) 04/12/20 03:10 Alkaline Phosphatase 66 Units/L (46-116) 04/12/20 03:10 Lactate Dehydrogenase 165 Units/L (81-234) 04/09/20 23:46 Creatine Kinase 30 Units/L (26-192) 04/09/20 23:46 CK-MB (CK-2) < 1.0 ng/mL (0-4.0) 04/09/20 23:46 CK/CKMB % Calc 3.3 % (<4) 04/09/20 23:46 Troponin I < 0.02 ng/mL (0-1.5) 04/09/20 23:46 C-Reactive Protein 43.10 mg/L (0-3.0) H 04/12/20 03:10 B-Natriuretic Peptide 38.3 pg/mL (0-79) 04/10/20 12:15 Total Protein 6.7 g/dL (6.4-8.2) 04/12/20 03:10 Albumin 2.8 g/dL (3.4-5.0) L 04/12/20 03:10 Globulin 3.9 g/dL (2.5-4.5) 04/12/20 03:10 Albumin/Globulin Ratio 0.7 Ratio (1.1-2.1) L 04/12/20 03:10 Amylase 54 Units/L (25-115) 04/09/20 23:46 Lipase 129 Units/L (73-393) 04/09/20 23:46 Specimen Type Clean catch urine 04/10/20 04:30 Urine Color Minerva (YELLOW) 04/10/20 04:30 Urine Appearance Clear (CLEAR) 04/10/20 04:30 Urine pH 6.0 (5.0 - 8.0) 04/10/20 04:30 Ur Specific [place] 1.015 (1.000-1.030) 04/10/20 04:30 Urine Protein 1+ (NEGATIVE) 04/10/20 04:30 Urine Glucose (UA) Negative (NEGATIVE) 04/10/20 04:30 Urine Ketones 3+ (NEGATIVE) 04/10/20 04:30 Urine Occult Blood 2+ (NEGATIVE) 04/10/20 04:30 Urine Nitrite Negative (NEGATIVE) 04/10/20 04:30 Urine Bilirubin Negative (NEGATIVE) 04/10/20 04:30 Urine Urobilinogen 1+ (NORMAL) 04/10/20 04:30 Ur Leukocyte Esterase Negative (NEGATIVE) 04/10/20 04:30 Urine RBC 0-2 /HPF (0-3) 04/10/20 04:30 Urine WBC 0-2 /HPF (0-5) 04/10/20 04:30 Ur Squamous Epith Cells Numerous /HPF (NEGATIVE) 04/10/20 04:30 Urine Bacteria Trace /HPF (NEGATIVE) 04/10/20 04:30 Ur Culture Indicated? No/not indicated 04/10/20 04:30 Blood Type O POSITIVE 04/10/20 11:59 - Plan (1) Pneumonia due to COVID-19 virus Status: Acute Plan: 1/2NS AT 75 ML/HR, LEVAQUIN 500MG IV DAILY, REMDESIVIR 100MG IV DAILY, SOLU-MEDROL 80MG IV Q8H, DUONEBS QID, PULMICORT NEBS BID, MUCOMYST IN NEB [place] BID, PEPCID IV, PROTONIX IV, GI COCKTAIL, FIORICET 2 TABS PO Q8H PRN, ZOFRAN 4MG IV Q8H PRN, THE POTASSIUM AND MAGNESIUM PROTOCOLS, AN HER HOME MEDICATIONS WERE RESUMED (2) Acute dehydration Status: Acute (3) Hypokalemia Status: Acute
[2020-04-12] MEDS: PEPCID 20 MG IV PREMIX* 20 MG/50 ML BAG IV SCH ×2 (14:50→20:45)
[2020-04-12] MEDS: ZOCOR TAB 10 MG PO SCH (20:45)
[2020-04-13] MEDS: TORADOL 30 MG VIAL IVP SCH ×2 (04:00→11:22)
[2020-04-13] MEDS ORDERED: NS 1/2 1000 ML IV 1,000 ML IV ONE (05:07)
[2020-04-13 05:19] LABS: BASOPHILS % (AUTO) 0 % (0.2-1.0); HEMATOCRIT 33.1 % (36.0-47.0); HEMOGLOBIN 11.4 g/dL (12.0-16.0); LYMPHOCYTES # (AUTO) 0.8 X10^3/uL (1.3-2.9); LYMPHOCYTES % (AUTO) 8.1 % (21.0-51.0); MEAN CORPUSCULAR HEMOGLOBIN 27.1 pg (27.0-34.0); MEAN CORPUSCULAR HGB CONC 34.4 g/dL (33.0-35.0); MEAN CORPUSCULAR VOLUME 78.7 fL (80.0-100.0); MEAN PLATELET VOLUME 8.1 fL (7.4-11.0); MONOCYTES # (AUTO) 0.5 x10^3/uL (0.3-0.8); MONOCYTES % (AUTO) 5.5 % (0.0-13.0); NEUTROPHILS # (AUTO) 8.3 x10^3/uL (2.2-4.8); NEUTROPHILS % (AUTO) 86.4 % (42.0-75.0); PLATELET COUNT 196 X10^3/uL (150.0-450.0); RED BLOOD COUNT 4.21 X10^6/uL (3.5-5.4); RED CELL DISTRIBUTION WIDTH 14.4 % (11.6-16.5); WHITE BLOOD COUNT 9.6 X10^3/uL (3.6-10.0)
[2020-04-13 05:23] LABS: ALANINE AMINOTRANSFERASE 26 Units/L (12-78); ALBUMIN 2.6 g/dL (3.4-5.0); ALKALINE PHOSPHATASE 60 Units/L (46-116); ASPARTATE AMINO TRANSFERASE 14 Units/L (15-37); BLOOD UREA NITROGEN 11 mg/dL (7-18); CALCIUM 7.9 mg/dL (8.5-10.1); CARBON DIOXIDE 26.6 mmol/L (21-32); CHLORIDE 105 mmol/L (98-107); COR NA(FOR HYPERGLY) 140 mmol/L (136-145); CREATININE 0.82 mg/dL (0.55-1.02); SODIUM 137 mmol/L (136-145); TOTAL PROTEIN 6.1 g/dL (6.4-8.2); eGFR NON BLACK RACES > 60 (>60)
[2020-04-13] MEDS: NS 1/2 1000 ML IV 1,000 ML IV SCH ×2 (05:30→11:24)
--- NOTE | 2020-04-13 05:55 | RAD ---
HISTORYSOBSTUDYCHEST, 1 [id number] trachea is midline. The cardiac silhouette is unremarkable. Mild bilateral scattered interstitial opacities. No pleural effusion or pneumothorax.. The bony thorax is unremarkable.IMPRESSIONStable portable chestElectronically signed by: Eloy Candelaria (Apr 13, 2020 05:54:21)
[2020-04-13] MEDS: SOLU-Medrol 40 MG VIAL IVP SCH (06:40)
[2020-04-13] MEDS: LEVAQUIN PREMIX IV 500 MG 500 MG/100 ML BAG IV SCH (08:25)
[2020-04-13] MEDS: SYNTHROID 112 mcg TAB PO SCH (08:25)
[2020-04-13] MEDS: REMDESIVIR (INVESTIGATIONAL DRUG GS-5734) 100 MG in NS 250 ML IV 250 ML IV SCH (08:25)
[2020-04-13] MEDS: HYDROCHLOROTHIAZIDE 12.5 MG CAP PO SCH (08:27)
[2020-04-13] MEDS: PROTONIX INJ 40 MG VIAL IVP SCH (08:27)
[2020-04-13] MEDS: COZAAR PO SCH (08:28)
[2020-04-13] MEDS: PEPCID 20 MG IV PREMIX* 20 MG/50 ML BAG IV SCH (08:28)
[2020-04-13] MEDS: VSL#3 PO SCH (08:29)
[2020-04-13] MEDS: LOVENOX INJ 30 MG SYR SC SCH (08:29)
[2020-04-13] MEDS: CELEXA PO SCH (08:30)
[2020-04-13] MEDS ORDERED: REMDESIVIR (INVESTIGATIONAL DRUG GS-5734) 100 MG in NS 250 ML IV 250 ML IV ONE (09:54)
[2020-04-13] MEDS: DUONEB 0.5 MG/3 MG (3 mL) NEB SCH (10:39)
[2020-04-13] MEDS: PULMICORT NEB TX 0.5 MG NEB SCH (10:39)
[2020-04-13] MEDS: LEVSIN/MAALOX/LIDOC VISC PO SCH (11:21)
[2020-04-13] MEDS: ROBITUSSIN DM PO SCH (11:22)
[2020-04-13 12:38] VITALS: BP 121/58
== END 2020-04-13 12:45 | disposition home or self-care (01) | DRG 177 ==
LOC: ER 23:04 → ICU 23:04
PROVIDERS: ADMIT Internal Medicine; ATTEND Internal Medicine
DX: R06.02 Shortness of breath; E87.6 Hypokalemia; E86.0 Dehydration; E03.8 Other specified hypothyroidism; U07.1 COVID-19; R51 Headache; K57.30 Diverticulosis of large intestine without perforation or abscess without bleeding; J12.89 Other viral pneumonia; R07.89 Other chest pain; K21.9 Gastro-esophageal reflux disease without esophagitis; R10.84 Generalized abdominal pain; R53.1 Weakness; I10 Essential (primary) hypertension; R26.89 Other abnormalities of gait and mobility